=== PATIENT | male | born 1960 | race Caucasian/White ===

== ENCOUNTER 2020-04-09 16:28 | Emergency (ER) | payer OTHER ==
[~2020-04-09] VITALS: Ht 172.7 cm; Wt 90.0 kg
--- NOTE | 2020-04-09 16:40 | PHYS DOC ---
General Adult EDM: Chief Complaint: SHORTNESS OF BREATH HPI: HPI: 59-year-old male with no reported significant past medical history, who presents for evaluation of several days of dyspnea, somewhat worsened when supine. Associated with chest fullness and mild nonproductive cough. No fever, chills, abdominal pain, nausea or vomiting. Tested positive for COVID-19 on Tuesday. No aggravating or alleviating factors. Review of Systems: Review of Systems: Gen: No fever, chills. Eyes: No blurred vision, diplopia. ENT: No nasal congestion, sore throat. CV: No palpitations. Reports chest fullness. Resp. Reports questionable orthopnea, SOB, cough. GI: No abd pain, N/V. : No dysuria, hematuria. Neuro: No S[place], dizziness, weakness. MSK: No myalgia, arthralgia, back pain. Skin: No acute rash or lesion. Heart Score: Risk Factors: Risk Factors: DM, Current or recent (<one month) smoker, HTN, HLP, family history of CAD, obesity. Risk Scores: Score 0 - 3: 2.5% MACE over next 6 weeks - Discharge Home Score 4 - 6: 20.3% MACE over next 6 weeks - Admit for Clinical Observation Score 7 - 10: 72.7% MACE over next 6 weeks - Early Invasive Strategies Physical Exam: PE: Gen: NAD. Well nourished. Head: NC/AT. Eyes: No scleral icterus. No conjunctival injection. ENT: MMM. Posterior OP clear. Neck: Supple. NT. No JVD. CV: RRR. No M/R/G. Peripheral pulses intact. Resp: Slightly prolonged expiratory phase. No wheezing or rales. Abd: Soft. NT. ND. MSK: No peripheral cyanosis. No edema. No calf tenderness or asymmetry. Neuro: Awake and alert. Skin. Warm. Dry. Psych: Appropriate mood & affect. Current Patient Data: Vital Signs: Vital Signs Date Time Temp Pulse Resp B/P (MAP) Pulse Ox O2 Delivery O2 Flow Rate FiO2 04/09/20 16:35 98.1 60 14 158/95 (116) 98 Room Air EKG: EKG: EKG at 1642. Sinus rhythm. Heart rate 58. Normal intervals. No STEMI. Interpreted by me. Radiology/Procedures: Radiology/Procedures: Study: CR PORTABLE CHEST 1V Indication: Shortness of air. Cough and fever. Reportedly COVID positive. Comparison: None. Findings: No confluent airspace infiltrate. The aeration pattern of both lungs is essentially symmetric. No layering effusion or pneumothorax. Within normal limits cardiomediastinal silhouette and gallo. Impression: No radiographic manifestations of pneumonia. Electronically signed by: BERNARD CARMEN MD (04/09/2020 5:09 PM) [id number] Course & Med Decision Making: Course & Med Decision Making Pertinent Labs and Imaging studies reviewed. (See chart for details) In summary, 59-year-old male who presents for evaluation of dyspnea, mild cough, in the setting of recently positive COVID-19. Pulse oximetry is 98% on room air. No increased work of breathing. Unremarkable cardiorespiratory examination. Chest x-ray clear. Lab work is otherwise unremarkable including normal troponin. I co considered, but do not suspect ACS or PE at this time. He remains well-appearing and nontoxic. He will be discharged home with home albuterol inhaler. Strict return precautions given. Advised home quarantine. Dragon Disclaimer: [employer] Disclaimer: This electronic medical record was generated, in whole or in part, using a voice recognition dictation system. Departure Departure: Impression: Primary Impression: COVID-19 Disposition: 01 HOME/RESIDENCE PRIOR TO ADM Condition: STABLE Referrals: PCP,NO (PCP) Patient Instructions: Viral Syndrome Additional Instructions: Your chest X-ray today did not show a pneumonia. Your cardiac workup was unremarkable. Your shortness of breath is likely a consequence of your active COVID19 infection. Return to the ED if you develop new or worsening symptoms. Scripts Albuterol Sulfate (PROAIR HFA INHALER) 8.5 Gm Hfa.aer.ad 2 PUFF IH PRN Q4-6HRS PRN for wheezing for 21 Days, #1 INHALER 0 Refills Prov: NARCISA ELDRIDGE DO 04/09/20 Justification of Admission: Justification of Admission: Justification of Admission Dx: N/A NARCISA ELDRIDGE DO Apr 09, 2020 16:40
--- NOTE | 2020-04-09 16:47 | EKG ---
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
--- NOTE | 2020-04-09 17:12 | RAD ---
Study: CR PORTABLE CHEST 1V Indication: Shortness of air. Cough and fever. Reportedly COVID positive. Comparison: None. Findings: No confluent airspace infiltrate. The aeration pattern of both lungs is essentially symmetric. No layering effusion or pneumothorax. Within normal limits cardiomediastinal silhouette and gallo. Impression: No radiographic manifestations of pneumonia. Electronically signed by: BERNARD CARMEN MD (04/09/2020 5:09 PM) [id number]
[2020-04-09 17:16] LABS: CALCIUM 8.8 mg/dL (8.5-10.1); CREATININE 0.8 mg/dL (0.7-1.3); GFR 99.3; POTASSIUM 3.5 mmol/L (3.5-5.1)
[2020-04-09 17:18] LABS: BASO % 1 % (0-3); EOS % 1 % (0-3); HEMOGLOBIN 14.9 g/dL (13.0-17.5); LYMPH % 30 % (24-48); MEAN CORPUSCULAR HEMOGLOBIN 31 pg (25-35); MEAN CORPUSCULAR HGB CONC 35 g/dL (31-37); MEAN CORPUSCULAR VOLUME 90 fL (79-100); MONO # 0.4 x10^3/uL (0.0-1.1); MONO % 12 % (0-9); NEUT # 1.9 x10^3uL (1.8-7.7); NEUT % 56 % (31-73); PLATELET COUNT 174 x10^3/uL (140-400); RED BLOOD COUNT 4.77 x10^6/uL (4.30-5.70); RED CELL DISTRIBUTION WIDTH 12.7 % (11.5-14.5); WHITE BLOOD COUNT 3.4 x10^3/uL (4.0-11.0)
[2020-04-09 17:28] LABS: ALBUMIN 3.7 g/dL (3.4-5.0); MAGNESIUM 2.1 mg/dL (1.8-2.4); TOTAL BILIRUBIN 0.3 mg/dL (0.2-1.0); TOTAL PROTEIN 7.3 g/dL (6.4-8.2)
[2020-04-09] MEDS ORDERED: ALBU2.5V8 IH (17:37)
[2020-04-09 17:45] VITALS: BP 133/73
== END 2020-04-09 17:45 | disposition home or self-care (01) ==
LOC: ER 16:28
DX: U07.1 COVID-19 (principal)
CPT/HCPCS: 36415; 71045; 80053; 82550; 83735; 83880; 84484; 85025; 93005; 99285-25

== ENCOUNTER → 2020-11-03 | Outpatient (CLI) | payer OTHER ==
[~2020-11-03] MED LIST: ALBU2.5V8 IH
--- NOTE | 2020-11-04 09:32 | RAD ---
Examination: 3 views of the lumbar spine HISTORY: History of low back pain COMPARISON: None available FINDINGS: The lumbar vertebral body heights are maintained. No evidence of listhesis identified. The facets are well aligned. Mild intervertebral disc height loss identified in the lumbar spine likely degenerative changes. IMPRESSION: Mild degenerative changes lumbar spine. Electronically signed by: Abdullahi Colmenares MD (11/04/2020 9:29 AM) [id number]
== END ==
LOC: RAD 18:32
PROVIDERS: ATTEND Nurse Practitioner Family
DX: M47.816 Spondylosis without myelopathy or radiculopathy, lumbar region (principal); Z68.24 Body mass index [BMI] 24.0-24.9, adult
CPT/HCPCS: 72100